=== PATIENT | male | born 1990 | race Caucasian/White ===

== ENCOUNTER 2018-04-04 07:42 | Emergency (ER) | payer BC, OTHER ==
--- NOTE | 2018-04-04 08:14 | ED ---
Chest Pain HPI - General Chief Complaint: Chest Pain Stated Complaint: feels ill Time Seen by Provider: 04/04/18 08:02 Source: patient, RN notes reviewed, old records reviewed Mode of arrival: ambulatory Limitations: no limitations - History of Present Illness Initial Comments: [id number] male presents returns today with chief complaint of intermittent chest pain for the past 4 months. Patient reports last night his heart rate was 120, and he was sitting there resting. Patient reports that he starts having a sharp stabbing pain to that time. He is a smoker. Family history of heart disease. Patient reports these been having these pains while he was at work. He states is not reproducible to motion or palpation. Patient states he's had no fevers or chills. When he does have the pain he occasionally feels somewhat short of breath. He denies any nausea or vomiting or abdominal pain. Denies any fevers or chills. No leg swelling or history of heart disease for himself. He has had a history of multiple cosmetic surgeries on his face. - Related Data Previous Rx's Medication Instructions Recorded Albuterol Inhaler [Ventolin Hfa 2 puff INHALATION Q4HR PRN #1 02/25/15 Inhaler] inhaler Azithromycin [Zithromax Z-pack] 250 mg PO DIRECTED #6 tab 02/25/15 predniSONE 50 mg PO DAILY #5 tab 02/25/15 Allergies Allergy/AdvReac Type Severity Reaction Status Date / Time No Known Allergies Allergy Verified 04/04/18 07:45 Review of Systems ROS Statement: Those systems with pertinent positive or pertinent negative responses have been documented in the HPI. ROS Other: All systems not noted in ROS Statement are negative. EKG Findings - EKG Comments: EKG Findings:: EKG performed at 758 and shows normal sinus rhythm with sinus arrhythmia. Rightward axis. Borderline EKG. Ventricular rate of 71 bpm. WV interval is 134 ms. QRS duration 104. QT QTc is 376/4 ms. No evidence of ST elevation or T-wave inversion. Notes of atrial or ventricular arrhythmias. Past Medical History Past Medical History: No Reported History History of Any Multi-Drug Resistant Organisms: None Reported Additional Past Surgical History / Comment(s): multiple cosmetic surgeries to face, wisdom teeth removed Past Psychological History: No Psychological Hx Reported Smoking Status: Current every day smoker Past Alcohol Use History: Rare Past Drug Use History: Marijuana General Exam - General Exam Comments Initial Comments: 28-year-old male. Alert and oriented. No acute distress. General: Well appearing, well nourished, in no distress. Oriented x 3, normal mood and affect . Ambulating without difficulty. Skin: Good turgor, no rash, unusual bruising or prominent lesions Hair: Normal texture and distribution. HEENT: Head: Normocephalic, atraumatic, no visible or palpable masses, depressions, or scaring. Eyes: Visual acuity intact, conjunctiva clear, sclera non-icteric, EOM intact, PERRL. Ears: EACs clear, TMs translucent & cone of light visualized. hearing intact. Nose: No external lesions, mucosa non-inflamed, septum and turbinates normal Mouth: Mucous membranes moist, no mucosal lesions. Teeth/Gums: No obvious caries or periodontal disease. No gingival inflammation or significant resorption. Pharynx: Mucosa non-inflamed, no tonsillar hypertrophy or exudate Neck: Supple, without lesions, bruits, or adenopathy, thyroid non-enlarged and non-tender Heart: No cardiomegaly or thrills; regular rate and rhythm, no murmur or gallop Lungs: Clear to auscultation and percussion Abdomen: Bowel sounds normal, no tenderness, organomegaly, masses, or hernia Extremities: No amputations or deformities, cyanosis, edema or varicosities, peripheral pulses intact Musculoskeletal: Normal gait and station. No misalignment, asymmetry, crepitation, defects, tenderness, masses, effusions, decreased range of motion, instability, atrophy or abnormal strength or tone in the head, neck, spine, ribs , pelvis or extremities. Neurologic: CN 2-12 normal. Sensation to pain, touch, and proprioception normal. DTRs normal in upper and lower extremities. No pathologic reflexes. Psychiatric: Oriented X3, intact recent and remote memory, judgment and insight , normal mood and affect. Limitations: no limitations Course Vital Signs 04/04/18 07:45 Temperature 97.7 F Pulse Rate 80 Respiratory 18 Rate Blood Pressure 131/92 O2 Sat by Pulse 100 Oximetry Chest Pain MDM - MDM 28-year-old male present intermittent chest pain Past 4 months. Patient's EKG is reviewed and negative for any acute changes. Reports that he has a chest he does check his heart rate since her elevated. Patient reports his heart rate does times is 1 20 bpm. At this time patient's laboratory was reviewed and unremarkable. Chest x-ray was reviewed and shows no acute cardio pulmonary process. Discussed the Patient likely needs follow-up with PCP in he needs to have a Holter monitor. I discussed close follow-up with primary care physician. Patient history plan will comply. Return parameters were discussed. Disposition Clinical Impression: Intermittent chest pain Disposition: HOME SELF-CARE Condition: Good Instructions: Chest Pain (ED) Additional Instructions: Patient has a follow-up with primary care physician. He may need a Holter monitor. Also follow-up with cardiology. Return to emergency department if any alarming signs or symptoms occur. Is patient prescribed a controlled substance at d/c from ED?: No Referrals: None,Stated [Primary Care Provider] - 1-2 days Kirstie Cazares MD [STAFF PHYSICIAN] - 1-2 days Radha Langford MD [STAFF PHYSICIAN] - 1-2 days Time of Disposition: 09:37
[2018-04-04 08:28] LABS: Basophils % (A) 0 %; Eosinophils # (A) 0.1 k/uL (0-0.7); Eosinophils % (A) 2 %; HCT 45.3 % (39.0-53.0); HGB 15.3 gm/dL (13.0-17.5); Lymphocytes % (A) 24 %; MCH 31.3 pg (25.0-35.0); MCHC 33.7 g/dL (31.0-37.0); Mean Platelet Volume 7.1; Monocytes # (A) 0.5 k/uL (0-1.0); Monocytes % (A) 6 %; Neutrophils # (A) 5.7 k/uL (1.3-7.7); Neutrophils % (A) 67 %; Platelet Count 261 k/uL (150-450); RBC 4.87 m/uL (4.30-5.90); RDW 12.8 % (11.5-15.5); WBC 8.4 k/uL (3.8-10.6)
[2018-04-04 08:35] LABS: INR 1.1 (<1.2); Partial Thromboplastin Time 26.4 sec (22.0-30.0); Prothrombin Time 10.9 sec (9.0-12.0)
--- NOTE | 2018-04-04 08:37 | XR ---
EXAMINATION TYPE: XR chest 2V DATE OF EXAM: 04/04/2018 COMPARISON: 02/25/2015 INDICATION: Chest pain TECHNIQUE: Frontal and lateral views of the chest are obtained. FINDINGS: The heart size is normal. The pulmonary vasculature is normal. The lungs are clear. IMPRESSION: 1. No acute pulmonary process.
[2018-04-04 08:38] LABS: ALT 26 U/L (21-72); AST 27 U/L (17-59); Albumin 4.5 g/dL (3.5-5.0); Alkaline Phosphatase 52 U/L (38-126); Anion Gap 9 mmol/L; Blood Urea Nitrogen 14 mg/dL (9-20); Calcium 9.6 mg/dL (8.4-10.2); Carbon Dioxide 23 mmol/L (22-30); Chloride 108 mmol/L (98-107); Glucose 96 mg/dL (74-99); Lipase 52 U/L (23-300); Magnesium 1.9 mg/dL (1.6-2.3); Potassium 3.9 mmol/L (3.5-5.1); Sodium 140 mmol/L (137-145); Total Bilirubin 0.5 mg/dL (0.2-1.3); Total Protein 7.6 g/dL (6.3-8.2)
[2018-04-04 08:50] LABS: Creatine Kinase 287 U/L (55-170)
[2018-04-04 09:03] LABS: Troponin I <0.012 ng/mL (0.000-0.034)
[2018-04-04 09:46] VITALS: BP 123/73; PULSE 64; RESP 16; TEMP 97.9
== END 2018-04-04 09:45 | disposition home or self-care (01) ==
LOC: EC 07:42
DX: R07.9 Chest pain, unspecified (principal); R06.02 Shortness of breath; F17.200 Nicotine dependence, unspecified, uncomplicated; Z82.49 Family history of ischemic heart disease and other diseases of the circulatory system
CPT/HCPCS: 36415; 71046; 80053; 82550; 82553; 83690; 83735; 84484; 85025; 85610; 85730; 93005; 99285

== ENCOUNTER → 2018-04-25 | Outpatient (CLI) | payer OTHER ==
--- NOTE | 2018-04-25 09:51 | CT ---
EXAMINATION TYPE: CT chest w con DATE OF EXAM: 04/25/2018 COMPARISON: Radiograph 04/04/2018 HISTORY: 28-year-old male left-sided chest pain for 6 months left sided chest pain x 6 months TECHNIQUE: Contiguous axial scanning of the chest after the administration of 100 mL of Isovue 300. Coronal/sagittal reconstructions performed. CT DLP: 115.3mGycm. Automatic exposure control utilized for a dose reduction. FINDINGS: Heart normal size without pericardial effusion. Aorta normal caliber with conventional arch vessel branching anatomy. No thoracic lymphadenopathy. There is mild pleural parenchymal scarring in the periphery of the right upper lobe with some strandy opacity also extending into the right upper lobe. Mild diffuse bronchial wall thickening. No consoli dation or pleural effusion. Visualized upper abdomen shows no gross abnormality. Bones: Osseous destructive process. IMPRESSION: 1. Strandy areas of pleural-parenchymal scarring within the right lung. 2. Very minimal diffuse bronchial wall thickening could represent bronchitis or asthma. Query smoking history. 3. Otherwise, no acute pulmonary process.
== END | disposition home or self-care (01) ==
LOC: RADCTMAIN 08:23
PROVIDERS: ATTEND Family Medicine
DX: J98.4 Other disorders of lung (principal); R07.9 Chest pain, unspecified
CPT/HCPCS: 71260; Q9967

== ENCOUNTER → 2018-05-10 | Outpatient (CLI) | payer OTHER ==
--- NOTE | 2018-05-10 11:13 | P.STRESS ---
- Stress Test Note Stress Test Results/Findings: Exam Performed: stress echo exercise Exam Date: 05/10/18 Reason for Exam: CP Height: 5 ft 5 in Weight: 47.174 kg Protocol: MAXX Stage: 5 Duration of Exercise: 13 Resting Heart Rate: 66 Resting Blood Pressure: 108/52 Maximum Achieved Heart Rate: 178 Maximum Achieved Blood Pressure: 151/56 85% PMHR: 162 100% PMHR: 191 METS: 13.5 Technologist Comment: Stress Test Results/Findings: This is a 28-year-old male being evaluated for symptoms of chest pain and palpitations. Patient has history of smoking and family history of ischemic heart disease. Stress data: Baseline EKG showed sinus rhythm with normal NV interval, QRS duration. Blood pressure is 108/52 with pulse rate of 66. Patient walked on the Maxx protocol for 13 minutes achieving a maximal heart rate of 178 with blood pressure 150/56. EKGs taken during and after exercise did not reveal any changes of ischemia. New Echo data: Baseline echo images showed normal wall motion and thickening. Exercise echo images showed augmentation of wall motion and thickening in all segments. Final impression: #1. Negative stress test #2. Negative stress echo
--- NOTE | 2018-05-10 12:16 | ECHOS ---
Stress Test Results/Findings: Exam Performed: stress echo exercise Exam Date: 05/10/18 Reason for Exam: CP Height: 5 ft 5 in Weight: 47.174 kg Protocol: MAXX Stage: 5 Duration of Exercise: 13 Resting Heart Rate: 66 Resting Blood Pressure: 108/52 Maximum Achieved Heart Rate: 178 Maximum Achieved Blood Pressure: 151/56 85% PMHR: 162 100% PMHR: 191 METS: 13.5 Technologist Comment: Stress Test Results/Findings: This is a 28-year-old male being evaluated for symptoms of chest pain and palpitations. Patient has history of smoking and family history of ischemic heart disease. Stress data: Baseline EKG showed sinus rhythm with normal CT interval, QRS duration. Blood pressure is 108/52 with pulse rate of 66. Patient walked on the Maxx protocol for 13 minutes achieving a maximal heart rate of 178 with blood pressure 150/56. EKGs taken during and after exercise did not reveal any changes of ischemia. New Echo data: Baseline echo images showed normal wall motion and thickening. Exercise echo images showed augmentation of wall motion and thickening in all segments. Final impression: #1. Negative stress test #2. Negative stress echo MTDD
== END | disposition home or self-care (01) ==
LOC: RADNMMAIN 10:08
PROVIDERS: ATTEND Family Medicine
DX: R07.9 Chest pain, unspecified (principal)
CPT/HCPCS: 93351

== ENCOUNTER 2018-07-27 09:23 | Emergency (ER) | payer OTHER ==
[2018-07-27] MEDS ORDERED: ONDANSETRON 4 MG/2 ML VIAL IVP STA (09:53)
[2018-07-27] MEDS ORDERED: SODIUM CHLORIDE 0.9% 1,000 ML IV STA (09:53)
[2018-07-27 10:10] LABS: Appearance,Urine Clear (Clear); Bilirubin,Urine Negative (Negative); Blood,Urine Negative (Negative); Color,Urine Yellow; Glucose,Urine (UA) Negative (Negative); Ketones,Urine Negative (Negative); Leukocyte Esterase,Urine Negative (Negative); Nitrite,Urine Negative (Negative); Protein,Urine Trace (Negative); Specific Gravity,Urine 1.017 (1.001-1.035); Urobilinogen,Urine <2.0 mg/dL (<2.0)
[2018-07-27 10:15] LABS: Basophils % (A) 0 %; Eosinophils # (A) 0.1 k/uL (0-0.7); Eosinophils % (A) 2 %; HCT 49.9 % (39.0-53.0); HGB 16.1 gm/dL (13.0-17.5); Lymphocytes # (A) 1.8 k/uL (1.0-4.8); Lymphocytes % (A) 25 %; MCH 30.7 pg (25.0-35.0); MCHC 32.3 g/dL (31.0-37.0); MCV 95.1 fL (80.0-100.0); Mean Platelet Volume 7.1; Monocytes # (A) 0.4 k/uL (0-1.0); Monocytes % (A) 6 %; Neutrophils # (A) 4.6 k/uL (1.3-7.7); Neutrophils % (A) 65 %; Platelet Count 255 k/uL (150-450); RBC 5.24 m/uL (4.30-5.90); RDW 12.9 % (11.5-15.5); WBC 7.1 k/uL (3.8-10.6)
--- NOTE | 2018-07-27 10:15 | ED ---
General Adult HPI - General Chief complaint: Abdominal Pain Stated complaint: antibiotics not working; pelvic pain Time Seen by Provider: 07/27/18 09:44 Source: patient, RN notes reviewed Mode of arrival: ambulatory Limitations: no limitations - History of Present Illness Initial comments: Patient 28-year-old male presents to the emergency room today with chief complaint of abdominal pain that started 1 week ago. He does admit that symptoms started with difficulty urinating. He is followed the family doctor and was started on Flomax also given a antibiotic. Patient states that he has had some relief of the symptoms unable to void. He states still experiencing pain in the lower abdomen with pain both on the right and left flanks at times. He describes it as sharp pain that comes and goes. Patient states that is also had decreased bowel movements. Patient denies any other complaints or symptoms. Patient denies any recent fever, chills, shortness of breath, chest pain, back pain, abdominal pain, nausea or vomiting, numbness or tingling, dysuria or hematuria, headaches or visual changes, or any other complaints. - Related Data Home Medications Medication Instructions Recorded Confirmed Amoxicillin 500 mg PO TID 07/27/18 07/27/18 Linaclotide [Linzess] 144 mcg PO ONCE 07/27/18 07/27/18 Melatonin 10 mg PO HS 07/27/18 07/27/18 Tamsulosin [Flomax] 0.4 mg PO DAILY 07/27/18 07/27/18 Previous Rx's Medication Instructions Recorded Doxycycline [Vibramycin] 100 mg PO BID #28 cap 07/27/18 Allergies Allergy/AdvReac Type Severity Reaction Status Date / Time No Known Allergies Allergy Verified 07/27/18 10:05 Review of Systems ROS Statement: Those systems with pertinent positive or pertinent negative responses have been documented in the HPI. ROS Other: All systems not noted in ROS Statement are negative. Past Medical History Past Medical History: No Reported History History of Any Multi-Drug Resistant Organisms: None Reported Additional Past Surgical History / Comment(s): multiple cosmetic surgeries to face, wisdom teeth removed Past Psychological History: No Psychological Hx Reported Smoking Status: Current every day smoker Past Alcohol Use History: Rare Past Drug Use History: Marijuana General Exam - General Exam Comments Initial Comments: General: The patient is awake and alert, in no distress, and does not appear acutely ill. Eye: There is normal conjunctiva bilaterally. No signs of icterus. Ears, nose, mouth and throat: There are moist mucous membranes and no oral lesions. Neck: The neck is supple, there is no tenderness or JVD. Cardiovascular: There is a regular rate and rhythm. No murmur, rub or gallop is appreciated. Respiratory: Lungs are clear to auscultation, respirations are non-labored, breath sounds are equal. No wheezes, stridor, rales, or rhonchi. Gastrointestinal: M soft on palpation. Patient does have mild tenderness lower quadrants. No rebound, guarding or CVA tenderness. Musculoskeletal: Normal ROM, no tenderness. Strength 5/5. Sensation intact. Pulses equal bilaterally 2+. Neurological: A&O x 3. CN II-XII intact, There are no obvious motor or sensory deficits. Coordination appears grossly intact. Speech is normal. Skin: Skin is warm and dry and no rashes or lesions are noted. Psychiatric: Cooperative, appropriate mood & affect, normal judgment. Limitations: no limitations Course Vital Signs 07/27/18 07/27/18 09:40 11:49 Temperature 98 F 98.9 F Pulse Rate 100 52 L Respiratory 20 18 Rate Blood Pressure 116/66 116/78 O2 Sat by Pulse 99 99 Oximetry Medical Decision Making - Medical Decision Making Patient's CT and pelvis reviewed and does show mildly enlarged and heterogeneous prostate gland. There is a scant amount of free fluid within the pelvis is read by radiologist. Patient's labs been reviewed. Patient will be treated with azithromycin, Rocephin here in the emergency room. He states there is no chance for any STDs. Patient's will be switched from antibiotics of amoxicillin 2 doxycycline. He is advised to follow-up the family physician and he does state he has an appointment coming up with urology. - Lab Data Result diagrams: 07/27/18 10:00 07/27/18 10:00 Lab Results 07/27/18 07/27/18 07/27/18 Range/Units 09:53 10:00 10:00 WBC 7.1 (3.8-10.6) k/uL RBC 5.24 (4.30-5.90) m/uL Hgb 16.1 (13.0-17.5) gm/dL Hct 49.9 (39.0-53.0) % MCV 95.1 (80.0-100.0) fL MCH 30.7 (25.0-35.0) pg MCHC 32.3 (31.0-37.0) g/dL RDW 12.9 (11.5-15.5) % Plt Count 255 (150-450) k/uL Neutrophils % 65 % Lymphocytes % 25 % Monocytes % 6 % Eosinophils % 2 % Basophils % 0 % Neutrophils # 4.6 (1.3-7.7) k/uL Lymphocytes # 1.8 (1.0-4.8) k/uL Monocytes # 0.4 (0-1.0) k/uL Eosinophils # 0.1 (0-0.7) k/uL Basophils # 0.0 (0-0.2) k/uL Sodium 141 (137-145) mmol/L Potassium 4.8 (3.5-5.1) mmol/L Chloride 110 H (98-107) mmol/L Carbon Dioxide 24 (22-30) mmol/L Anion Gap 7 mmol/L BUN 15 (9-20) mg/dL Creatinine 0.69 (0.66-1.25) mg/dL Est GFR (CKD-EPI)AfAm >90 (>60 ml/min/1.73 sqM) Est GFR (CKD-EPI)NonAf >90 (>60 ml/min/1.73 sqM) Glucose 95 (74-99) mg/dL Calcium 9.5 (8.4-10.2) mg/dL Total Bilirubin 0.7 (0.2-1.3) mg/dL AST 24 (17-59) U/L ALT 22 (21-72) U/L Alkaline Phosphatase 46 (38-126) U/L Total Protein 7.5 (6.3-8.2) g/dL Albumin 4.5 (3.5-5.0) g/dL Amylase 64 (30-110) U/L Lipase 60 (23-300) U/L Urine Color Yellow Urine Appearance Clear (Clear) Urine pH 6.0 (5.0-8.0) Ur Specific [place] 1.017 (1.001-1.035) Urine Protein Trace H (Negative) Urine Glucose (UA) Negative (Negative) Urine Ketones Negative (Negative) Urine Blood Negative (Negative) Urine Nitrite Negative (Negative) Urine Bilirubin Negative (Negative) Urine Urobilinogen <2.0 (<2.0) mg/dL Ur Leukocyte Esterase Negative (Negative) Disposition Clinical Impression: Prostatitis Disposition: HOME SELF-CARE Condition: Good Instructions: Prostatitis (ED) Additional Instructions: Please use medication as discussed. Please follow-up with family doctor in the next 2 days. Please return to emergency room if the symptoms increase or worsen or for any other concerns. Prescriptions: Doxycycline [Vibramycin] 100 mg PO BID #28 cap Is patient prescribed a controlled substance at d/c from ED?: No Referrals: Anny Pace MD [Primary Care Provider] - 1-2 days Time of Disposition: 12:21
--- NOTE | 2018-07-27 10:22 | XR ---
EXAMINATION TYPE: XR KUB , 2 VIEWS DATE OF EXAM ORDERED: 07/27/2018 HISTORY: abdominal pain. COMPARISON: None. FINDINGS: The lung bases are clear. Within the abdomen, the abdominal gas pattern is normal. There is no evidence of obstruction or free air. There is a phlebolith in the left hemipelvis. IMPRESSION: NO ACUTE INTRA-ABDOMINAL ABNORMALITY.
[2018-07-27 10:34] LABS: ALT 22 U/L (21-72); AST 24 U/L (17-59); Albumin 4.5 g/dL (3.5-5.0); Alkaline Phosphatase 46 U/L (38-126); Amylase 64 U/L (30-110); Anion Gap 7 mmol/L; Blood Urea Nitrogen 15 mg/dL (9-20); Calcium 9.5 mg/dL (8.4-10.2); Carbon Dioxide 24 mmol/L (22-30); Chloride 110 mmol/L (98-107); Glucose 95 mg/dL (74-99); Lipase 60 U/L (23-300); Potassium 4.8 mmol/L (3.5-5.1); Sodium 141 mmol/L (137-145); Total Bilirubin 0.7 mg/dL (0.2-1.3); Total Protein 7.5 g/dL (6.3-8.2)
--- NOTE | 2018-07-27 11:39 | CT ---
EXAMINATION TYPE: CT abdomen pelvis w con DATE OF EXAM: 07/27/2018 REFERENCE: NONE HISTORY: Pain HISTORY: Pelvic pain with difficulty urinating and bowel changes REFERENCE: NONE CT DLP: 378.5 mGy Automated exposure control for dose reduction was used. TECHNIQUE: Helical acquisition through the abdomen and pelvis was obtained following the oral ingesti on of without Oral Contrast and following intravenous administration of 100 mL of Isovue 300. The eve a was reformatted in axial, coronal and sagittal projections. FINDINGS: Visualized portions of the lungs are clear. There is no pleural or pericardial fluid. The heart is not enlarged. Within the abdomen, the liver, spleen and gallbladder are normal. Both adrenal glands are normal. Both kidneys demonstrate function and are morphologically normal. The pancreas is unremarkable. There is no significant retroperitoneal, iliac or inguinal adenopathy. The bladder is unremarkable. The prostate gland appears enlarged and heterogenous lesion enhances. Both large and small bowel appear normal. The appendix is not visualized with certainty. There is no free air identified. There is a small amount of free fluid in the pelvis. No osseous lesion is seen. IMPRESSION: 1. MILDLY ENLARGED AND HETEROGENOUS PROSTATE GLAND. PLEASE CORRELATE FOR PROSTATITIS. 2. SCANT AMOUNT OF FREE FLUID WITHIN THE PELVIS.
[2018-07-27 11:51] VITALS: BP 116/78; PULSE 52; RESP 18; TEMP 98.9
[2018-07-27] MEDS ORDERED: cefTRIAXone 250 MG VIAL IV STA (12:10)
[2018-07-27] MEDS ORDERED: AZITHROMYCIN 500 MG TAB PO STA (12:11)
[2018-07-27] MEDS ORDERED: cefTRIAXone 250 MG VIAL IM STA (12:53)
== END 2018-07-27 12:58 | disposition home or self-care (01) ==
LOC: EC 09:23
DX: N41.9 Inflammatory disease of prostate, unspecified (principal); F17.200 Nicotine dependence, unspecified, uncomplicated; Z79.899 Other long term (current) drug therapy; Z53.8 Procedure and treatment not carried out for other reasons
CPT/HCPCS: 36415; 80053; 82150; 83690; 85025; 81003; 87086; 74018; 74177; 99284; 96374; 96361 ×3; 96372; J2405; J0696; Q9967

== ENCOUNTER 2018-09-06 19:56 | Emergency (ER) | payer OTHER ==
[2018-09-06] MEDS ORDERED: SODIUM CHLORIDE 0.9% 1,000 ML IV STA (20:20)
[2018-09-06] MEDS ORDERED: ONDANSETRON 4 MG/2 ML VIAL IVP STA (20:20)
[2018-09-06 20:50] LABS: Basophils % (A) 0 %; Eosinophils # (A) 0.3 k/uL (0-0.7); Eosinophils % (A) 2 %; HCT 49.1 % (39.0-53.0); Lymphocytes # (A) 1.9 k/uL (1.0-4.8); Lymphocytes % (A) 12 %; MCH 31.2 pg (25.0-35.0); MCHC 32.5 g/dL (31.0-37.0); MCV 95.8 fL (80.0-100.0); Mean Platelet Volume 7.7; Monocytes # (A) 0.6 k/uL (0-1.0); Monocytes % (A) 4 %; Neutrophils # (A) 13.2 k/uL (1.3-7.7); Neutrophils % (A) 82 %; Platelet Count 249 k/uL (150-450); RBC 5.13 m/uL (4.30-5.90); RDW 12.7 % (11.5-15.5); WBC 16.2 k/uL (3.8-10.6)
[2018-09-06 21:00] LABS: ALT 23 U/L (21-72); AST 20 U/L (17-59); Albumin 4.5 g/dL (3.5-5.0); Alkaline Phosphatase 52 U/L (38-126); Amylase 58 U/L (30-110); Anion Gap 6 mmol/L; Blood Urea Nitrogen 17 mg/dL (9-20); Calcium 9.4 mg/dL (8.4-10.2); Carbon Dioxide 26 mmol/L (22-30); Chloride 106 mmol/L (98-107); Glucose 104 mg/dL (74-99); Lipase 99 U/L (23-300); Potassium 4.2 mmol/L (3.5-5.1); Sodium 138 mmol/L (137-145); Total Bilirubin 0.6 mg/dL (0.2-1.3); Total Protein 7.3 g/dL (6.3-8.2)
[2018-09-06 21:19] LABS: Appearance,Urine Clear (Clear); Bilirubin,Urine Negative (Negative); Blood,Urine Negative (Negative); Color,Urine Yellow; Glucose,Urine (UA) Negative (Negative); Ketones,Urine Negative (Negative); Leukocyte Esterase,Urine Negative (Negative); Nitrite,Urine Negative (Negative); Protein,Urine Negative (Negative); Specific Gravity,Urine 1.017 (1.001-1.035)
--- NOTE | 2018-09-06 21:19 | XR ---
EXAMINATION TYPE: XR abdomen acute w cxr DATE OF EXAM: 09/06/2018 COMPARISON: 04/04/2018 HISTORY: Chest pain TECHNIQUE: Chest x-ray with supine and upright abdomen FINDINGS: Heart and mediastinum are normal. Lungs are clear. Diaphragm is normal. Bony thorax appears normal. Bowel gas pattern is normal. There is no sign of intestinal obstruction or pneumoperitoneum. Fecal pa ttern is normal. There is no evidence of a mass. There are no pathologic calcifications over the kidn eys. IMPRESSION: Nonacute abdomen. Normal chest. Chest unchanged compared to old exam.
--- NOTE | 2018-09-06 22:05 | US ---
EXAMINATION TYPE: US gallbladder DATE OF EXAM: 09/06/2018 COMPARISON: NONE CLINICAL HISTORY: Pain. EXAM MEASUREMENTS: Liver Length: 13.5 cm Gallbladder Wall: 0.3 cm CBD: 0.3 cm Right Kidney: 10.5 x 4.0 x 4.8 cm Pancreas: wnl Liver: wnl Gallbladder: appears wnl at seen, however pt not NPO, gallbladder contracted Evidence for sonographic Haynes's sign: no CBD: wnl Right Kidney: wnl IMPRESSION: Negative exam. No gallstones or dilated ducts.
--- NOTE | 2018-09-06 22:20 | ED ---
Abdominal Pain HPI - General Chief Complaint: Abdominal Pain Stated Complaint: Abd pain Time Seen by Provider: 09/06/18 20:19 Source: patient Mode of arrival: ambulatory Limitations: no limitations - History of Present Illness Initial Comments: 28-year-old male who denies past medical history presenting today for chief complaint of abdominal pain 2 months. Patient states he has been struggling with abdominal pain for the past 2 months. He states it comes and goes. He is unable to localize it. Stating it changes in location. Patient denies any significant abdominal pain today. Patient states the past week and a half he has had on and off diarrhea. Patient denies any consistent diarrhea melena hematochezia. Patient states he had one isolated episode of vomiting, denies hematemesis. Patient denies chest pain, dysphagia, dyspepsia exertion, lower extremity edema, rash, sore throat, cough congestion, fever, chills. Patient does admit to occasional night sweats. Patient states that he often has to have a bowel movement immediately following eating, he states he is concerned this is his gallbladder patient states he does occasionally have right upper quadrant pain denies current. Remainder of ROS negative, oatient denies any recent fever, chills, back pain, numbness or tingling, dysuria, urgency or hematuria, constipation, headaches or visual changes, or any other complaints. Upon arrival patient is well-appearing no signs of acute distress. - Related Data Home Medications Medication Instructions Recorded Confirmed Melatonin 10 mg PO HS 07/27/18 09/06/18 Allergies Allergy/AdvReac Type Severity Reaction Status Date / Time No Known Allergies Allergy Verified 09/06/18 20:29 Review of Systems ROS Statement: Those systems with pertinent positive or pertinent negative responses have been documented in the HPI. ROS Other: All systems not noted in ROS Statement are negative. Past Medical History Past Medical History: No Reported History History of Any Multi-Drug Resistant Organisms: None Reported Additional Past Surgical History / Comment(s): multiple cosmetic surgeries to face, wisdom teeth removed Past Psychological History: No Psychological Hx Reported Smoking Status: Current every day smoker Past Alcohol Use History: Rare Past Drug Use History: Marijuana General Exam - General Exam Comments Initial Comments: General: The patient is awake and alert, in no distress, and does not appear acutely ill. Eye: Pupils are equal, round and reactive to light, extra-ocular movements are intact. No nystagmus. There is normal conjunctiva bilaterally. No signs of icterus. Ears, nose, mouth and throat: There are moist mucous membranes and no oral lesions. Neck: The neck is supple, there is no tenderness or JVD. Cardiovascular: There is a regular rate and rhythm. No murmur, rub or gallop is appreciated. Respiratory: Lungs are clear to auscultation, respirations are non-labored, breath sounds are equal. No wheezes, stridor, rales, or rhonchi. Gastrointestinal: No noted diaphoresis, jaundice, pallor, protecting postures or squirming. Symmetrical pigmentation of abdomen without signs of inflammation, scars, or striae. Umbilicus mildline, inverted without swelling. No dilated veins. Abdomen contour schaphoid, no noted abdominal distention. No visible masses. No peristalsis, aortic pulsations, or ventral hernia. Bowel sounds audible in all 4 quadrants, unremarkable. No tenderness to light or deep palpation. Liver edge , not palpable. Spleen edge, right and left kidney not palpable. Superior bladder margin non-tender. Special Testing: Negative, [place], [place], McBurney, Al, cutaneous hyperesthesia. Iliopsoas and obturator tests negative bilaterally. Negative Heel Jar test. No CVA tenderness. Digital rectal exam deferred. Negative kinsey turners or cullens sign Musculoskeletal: Normal ROM, no tenderness. Strength 5/5. Sensation intact. Radial and DP pulses equal bilaterally 2+. Neurological: A&O x 3. CN II-XII intact, There are no obvious motor or sensory deficits. Coordination appears grossly intact. Speech is normal. Skin: Skin is warm and dry and no rashes or lesions are noted. Psychiatric: Cooperative, appropriate mood & affect, normal judgment. Limitations: no limitations Course Vital Signs 09/06/18 09/06/18 20:16 22:45 Temperature 98.5 F 98.6 F Pulse Rate 99 60 Respiratory 20 14 Rate Blood Pressure 128/90 123/77 O2 Sat by Pulse 97 98 Oximetry Medical Decision Making - Medical Decision Making Elevation of white blood cell count. Remainder of laboratory values within normal limits. Patient appears well, no signs of pain on abdominal exam. Benign exam. Patient history concerning for possible gallbladder disease with frequent loose stools following greasy meals. Patient had normal ultrasound gallbladder. No signs concerning for cholelithiasis. Acute abdominal series (-) . At this time do feel patient is stable for discharge with outpatient gastroenterology follow-up for chronic abdominal pain. Patient is agreeable plan discharge. Denies questions at this time. Patient discharged stable condition. Well. Patient aware of return parameters, denies questions at this time. Case discussed with attending provider Dr. Barraza prior to patient's discharge - Lab Data Result diagrams: 09/06/18 20:35 09/06/18 20:35 Lab Results 09/06/18 09/06/18 09/06/18 Range/Units 20:35 20:35 21:10 WBC 16.2 H (3.8-10.6) k/uL RBC 5.13 (4.30-5.90) m/uL Hgb 16.0 (13.0-17.5) gm/dL Hct 49.1 (39.0-53.0) % MCV 95.8 (80.0-100.0) fL MCH 31.2 (25.0-35.0) pg MCHC 32.5 (31.0-37.0) g/dL RDW 12.7 (11.5-15.5) % Plt Count 249 (150-450) k/uL Neutrophils % 82 % Lymphocytes % 12 % Monocytes % 4 % Eosinophils % 2 % Basophils % 0 % Neutrophils # 13.2 H (1.3-7.7) k/uL Lymphocytes # 1.9 (1.0-4.8) k/uL Monocytes # 0.6 (0-1.0) k/uL Eosinophils # 0.3 (0-0.7) k/uL Basophils # 0.0 (0-0.2) k/uL Sodium 138 (137-145) mmol/L Potassium 4.2 (3.5-5.1) mmol/L Chloride 106 (98-107) mmol/L Carbon Dioxide 26 (22-30) mmol/L Anion Gap 6 mmol/L BUN 17 (9-20) mg/dL Creatinine 0.73 (0.66-1.25) mg/dL Est GFR (CKD-EPI)AfAm >90 (>60 ml/min/1.73 sqM) Est GFR (CKD-EPI)NonAf >90 (>60 ml/min/1.73 sqM) Glucose 104 H (74-99) mg/dL Calcium 9.4 (8.4-10.2) mg/dL Total Bilirubin 0.6 (0.2-1.3) mg/dL AST 20 (17-59) U/L ALT 23 (21-72) U/L Alkaline Phosphatase 52 (38-126) U/L Total Protein 7.3 (6.3-8.2) g/dL Albumin 4.5 (3.5-5.0) g/dL Amylase 58 (30-110) U/L Lipase 99 (23-300) U/L Urine Color Yellow Urine Appearance Clear (Clear) Urine pH 7.0 (5.0-8.0) Ur Specific [place] 1.017 (1.001-1.035) Urine Protein Negative (Negative) Urine Glucose (UA) Negative (Negative) Urine Ketones Negative (Negative) Urine Blood Negative (Negative) Urine Nitrite Negative (Negative) Urine Bilirubin Negative (Negative) Urine Urobilinogen 3.0 (<2.0) mg/dL Ur Leukocyte Esterase Negative (Negative) Disposition Clinical Impression: Nonspecific abdominal pain, Diarrhea Disposition: HOME SELF-CARE Condition: Good Instructions (If sedation given, give patient instructions): Abdominal Pain (ED ) Additional Instructions: Please use medication as discussed. Please follow-up with family doctor in the next 2 days, please follow-up in next week with gastroenterology as discussed. Please return to emergency room if the symptoms increase or worsen or for any other concerns. Is patient prescribed a controlled substance at d/c from ED?: No Referrals: Anny Pace MD [Primary Care Provider] - 1-2 days Edilma Crespo MD [STAFF PHYSICIAN] - 1-2 days Time of Disposition: 22:19
[2018-09-06 23:20] VITALS: BP 123/77; PULSE 60; RESP 14; TEMP 98.6
== END 2018-09-06 22:45 | disposition home or self-care (01) ==
LOC: EC 19:56
DX: R10.11 Right upper quadrant pain (principal); G89.29 Other chronic pain; R19.7 Diarrhea, unspecified; R11.10 Vomiting, unspecified; R61 Generalized hyperhidrosis; F17.200 Nicotine dependence, unspecified, uncomplicated
CPT/HCPCS: 36415; 74022; 76705; 80053; 81003; 82150; 83690; 85025; 96360; 99284

== ENCOUNTER → 2019-07-03 | Outpatient (CLI) | payer BC ==
--- NOTE | 2019-07-03 09:08 | US ---
EXAMINATION TYPE: US kidneys/renal and bladder DATE OF EXAM: 07/03/2019 COMPARISON: CT 07/27/18 CLINICAL HISTORY: R30.0 DYSURIA,R10.2 PELVIC PAIN. EXAM MEASUREMENTS: Right Kidney: 10.7 x 4.9 x 3.7 cm Left Kidney: 10.1 x 4.5 x 4.4 cm Post Void Residual Volume: 3.3 mL Right Kidney: No hydronephrosis or masses seen Left Kidney: No hydronephrosis or masses seen Bladder: wnl Bilateral Jets seen: Yes Normal Post Void Residual: Yes There is no evidence for hydronephrosis at this point in time. No nephrolithiasis is seen. No kobi s are identified. The urinary bladder is anechoic. Bilateral ureteral jets are seen. IMPRESSION: No distinct abnormality seen.
== END | disposition home or self-care (01) ==
LOC: RADUSWWP 07:59
PROVIDERS: ATTEND Internal Medicine
DX: R10.2 Pelvic and perineal pain (principal); R30.0 Dysuria
CPT/HCPCS: 76770

== ENCOUNTER 2020-01-28 02:20 | Emergency (ER) | payer BC ==
[2020-01-28 02:29] VITALS: RESP 18; TEMP 98.3
[2020-01-28] MEDS ORDERED: ONDANSETRON 4 MG/2 ML VIAL IVP STA (02:33)
[2020-01-28] MEDS ORDERED: PANTOPRAZOLE 40 MG/10 ML VIAL IVP STA (02:33)
[2020-01-28] MEDS ORDERED: SODIUM CHLORIDE 0.9% 500 ML 500 ML IV STA (02:33)
[2020-01-28] MEDS ORDERED: SODIUM CHLORIDE 0.9% 1,000 ML IV STA (02:33)
--- NOTE | 2020-01-28 02:34 | ED ---
Abdominal Pain HPI - General Chief Complaint: Abdominal Pain Stated Complaint: NVD, SOB Time Seen by Provider: 01/28/20 02:25 Source: patient, RN notes reviewed, old records reviewed Mode of arrival: ambulatory Limitations: no limitations - History of Present Illness Initial Comments: This is a 29-year-old male the ER. Patient presents to the ER for evaluation. Patient presents today for evaluation regards to when he believes maybe to coronavirus. Patient was at work today and was not feeling well had some nausea vomiting felt feverish occasionally short of breath symptoms of been going on for quite some time he has not been tested but is concerned that he has is illness. At this time patient has no complaints except for anxiety that he may lose his job MD Complaint: abdominal pain -: week(s) Location: diffuse Radiation: none Migration to: no migration Consistency: now resolved Improves With: vomiting Worsens With: nothing Context: sick contacts Associated Symptoms: nausea, vomiting - Related Data Home Medications Medication Instructions Recorded Confirmed Melatonin 10 mg PO HS 07/27/18 09/06/18 Allergies Allergy/AdvReac Type Severity Reaction Status Date / Time No Known Allergies Allergy Verified 09/06/18 20:29 Review of Systems ROS Statement: Those systems with pertinent positive or pertinent negative responses have been documented in the HPI. ROS Other: All systems not noted in ROS Statement are negative. Past Medical History Past Medical History: No Reported History History of Any Multi-Drug Resistant Organisms: None Reported Additional Past Surgical History / Comment(s): multiple cosmetic surgeries to face, wisdom teeth removed Past Psychological History: Depression Smoking Status: Current every day smoker Past Alcohol Use History: Rare Past Drug Use History: Marijuana General Exam Limitations: no limitations General appearance: alert, in no apparent distress, anxious Head exam: Present: atraumatic, normocephalic, normal inspection Eye exam: Present: normal appearance, PERRL, EOMI. Absent: scleral icterus, conjunctival injection, periorbital swelling ENT exam: Present: normal exam, mucous membranes moist Neck exam: Present: normal inspection. Absent: tenderness, meningismus, lymphadenopathy Respiratory exam: Present: normal lung sounds bilaterally. Absent: respiratory distress, wheezes, rales, rhonchi, stridor Cardiovascular Exam: Present: regular rate, normal rhythm, normal heart sounds. Absent: systolic murmur, diastolic murmur, rubs, gallop, clicks GI/Abdominal exam: Present: soft, normal bowel sounds. Absent: distended, tenderness, guarding, rebound, rigid Extremities exam: Present: normal inspection, full ROM, normal capillary refill. Absent: tenderness, pedal edema, joint swelling, calf tenderness Back exam: Present: normal inspection Neurological exam: Present: alert, oriented X3, CN II-XII intact Psychiatric exam: Present: normal affect, normal mood Skin exam: Present: warm, dry, intact, normal color. Absent: rash Course Vital Signs 01/28/20 01/28/20 02:24 04:30 Temperature 98.3 F Pulse Rate 109 H 77 Respiratory 18 18 Rate Blood Pressure 119/84 118/84 O2 Sat by Pulse 100 97 Oximetry - Reevaluation(s) Reevaluation #1: Medical records reviewed patient very angry and argumentative throughout ER stay in the fact that he doesn't want to lose his job and even though he had to be sent to ER his and platelets. He gets tested as he has had multiple no surgeries Patient is a symptomatically no shortness of breath currently Medical Decision Making - Medical Decision Making 29-year-old male presented today from work and she had some vomiting shortness of breath which she felt feverish concerned that he has coronavirus, patient has normal lab values vital signs here in the ER will test for coronavirus and follow-up on an outpatient basis with results - Lab Data Result diagrams: 01/28/20 02:47 01/28/20 02:47 Lab Results 01/28/20 01/28/20 01/28/20 Range/Units 02:47 02:47 02:47 WBC 9.5 (3.8-10.6) k/uL RBC 5.06 (4.30-5.90) m/uL Hgb 15.5 (13.0-17.5) gm/dL Hct 48.6 (39.0-53.0) % MCV 96.2 (80.0-100.0) fL MCH 30.6 (25.0-35.0) pg MCHC 31.8 (31.0-37.0) g/dL RDW 12.7 (11.5-15.5) % Plt Count 254 (150-450) k/uL Neutrophils % 86 % Lymphocytes % 8 % Monocytes % 4 % Eosinophils % 2 % Basophils % 0 % Neutrophils # 8.1 H (1.3-7.7) k/uL Lymphocytes # 0.8 L (1.0-4.8) k/uL Monocytes # 0.4 (0-1.0) k/uL Eosinophils # 0.1 (0-0.7) k/uL Basophils # 0.0 (0-0.2) k/uL PT 9.9 (9.0-12.0) sec INR 0.9 (<1.2) APTT 25.1 (22.0-30.0) sec D-Dimer 0.76 H (<0.60) mg/L FEU Sodium 136 L (137-145) mmol/L Potassium 4.4 (3.5-5.1) mmol/L Chloride 106 (98-107) mmol/L Carbon Dioxide 22 (22-30) mmol/L Anion Gap 8 mmol/L BUN 14 (9-20) mg/dL Creatinine 0.59 L (0.66-1.25) mg/dL Est GFR (CKD-EPI)AfAm >90 (>60 ml/min/1.73 sqM) Est GFR (CKD-EPI)NonAf >90 (>60 ml/min/1.73 sqM) Glucose 116 H (74-99) mg/dL Plasma Lactic Acid Steven (0.7-2.0) mmol/L Calcium 9.2 (8.4-10.2) mg/dL Magnesium 1.9 (1.6-2.3) mg/dL Ferritin 62.6 (22.0-322.0) ng/mL Total Bilirubin 0.6 (0.2-1.3) mg/dL AST 28 (17-59) U/L ALT 17 (4-49) U/L Alkaline Phosphatase 56 (38-126) U/L Lactate Dehydrogenase 516 (313-618) U/L C-Reactive Protein 7.6 (<10.0) mg/L Total Protein 7.3 (6.3-8.2) g/dL Albumin 4.3 (3.5-5.0) g/dL Procalcitonin (0.02-0.09) ng/mL Coronavirus (PCR) (Not Detected) 01/28/20 01/28/20 01/28/20 Range/Units 02:47 02:47 03:43 WBC (3.8-10.6) k/uL RBC (4.30-5.90) m/uL Hgb (13.0-17.5) gm/dL Hct (39.0-53.0) % MCV (80.0-100.0) fL MCH (25.0-35.0) pg MCHC (31.0-37.0) g/dL RDW (11.5-15.5) % Plt Count (150-450) k/uL Neutrophils % % Lymphocytes % % Monocytes % % Eosinophils % % Basophils % % Neutrophils # (1.3-7.7) k/uL Lymphocytes # (1.0-4.8) k/uL Monocytes # (0-1.0) k/uL Eosinophils # (0-0.7) k/uL Basophils # (0-0.2) k/uL PT (9.0-12.0) sec INR (<1.2) APTT (22.0-30.0) sec D-Dimer (<0.60) mg/L FEU Sodium (137-145) mmol/L Potassium (3.5-5.1) mmol/L Chloride (98-107) mmol/L Carbon Dioxide (22-30) mmol/L Anion Gap mmol/L BUN (9-20) mg/dL Creatinine (0.66-1.25) mg/dL Est GFR (CKD-EPI)AfAm (>60 ml/min/1.73 sqM) Est GFR (CKD-EPI)NonAf (>60 ml/min/1.73 sqM) Glucose (74-99) mg/dL Plasma Lactic Acid Steven 1.4 (0.7-2.0) mmol/L Calcium (8.4-10.2) mg/dL Magnesium (1.6-2.3) mg/dL Ferritin (22.0-322.0) ng/mL Total Bilirubin (0.2-1.3) mg/dL AST (17-59) U/L ALT (4-49) U/L Alkaline Phosphatase (38-126) U/L Lactate Dehydrogenase (313-618) U/L C-Reactive Protein (<10.0) mg/L Total Protein (6.3-8.2) g/dL Albumin (3.5-5.0) g/dL Procalcitonin 0.09 (0.02-0.09) ng/mL Coronavirus (PCR) Not Detected (Not Detected) - EKG Data -: EKG Interpreted by Me (EKG shows sinus rhythm of 96, [place] 118, QRS 92, QTC 421) - Radiology Data Radiology results: report reviewed (Chest x-rays negative for acute disease), image reviewed Disposition Clinical Impression: Abdominal pain, Nausea and vomiting Narrative: r/o COVID Disposition: HOME SELF-CARE Condition: Fair Instructions (If sedation given, give patient instructions): Abdominal Pain (ED) Is patient prescribed a controlled substance at d/c from ED?: No Referrals: Anny Pace MD [Primary Care Provider] - 1-2 days
--- NOTE | 2020-01-28 02:54 | XR ---
EXAMINATION TYPE: XR chest 1V portable DATE OF EXAM: 01/28/2020 COMPARISON: 09/06/2018 HISTORY: Abdominal pain chest pain TECHNIQUE: Single view FINDINGS: Heart and mediastinum are normal. Lungs are clear. Diaphragm is normal. Bony thorax appears normal. IMPRESSION: Normal chest. No change.
[2020-01-28 03:14] LABS: ALT 17 U/L (4-49); AST 28 U/L (17-59); African American GFR (CKD) >90 (>60 ml/min/1.73 sqM); Albumin 4.3 g/dL (3.5-5.0); Alkaline Phosphatase 56 U/L (38-126); Anion Gap 8 mmol/L; Blood Urea Nitrogen 14 mg/dL (9-20); C Reactive Protein 7.6 mg/L (<10.0); Calcium 9.2 mg/dL (8.4-10.2); Carbon Dioxide 22 mmol/L (22-30); Chloride 106 mmol/L (98-107); Glucose 116 mg/dL (74-99); LDH 516 U/L (313-618); Magnesium 1.9 mg/dL (1.6-2.3); Non-African American GFR(CKD) >90 (>60 ml/min/1.73 sqM); Potassium 4.4 mmol/L (3.5-5.1); Sodium 136 mmol/L (137-145); Total Bilirubin 0.6 mg/dL (0.2-1.3); Total Protein 7.3 g/dL (6.3-8.2)
[2020-01-28 03:26] LABS: Basophils % (A) 0 %; Eosinophils # (A) 0.1 k/uL (0-0.7); Eosinophils % (A) 2 %; HCT 48.6 % (39.0-53.0); HGB 15.5 gm/dL (13.0-17.5); Lymphocytes # (A) 0.8 k/uL (1.0-4.8); Lymphocytes % (A) 8 %; MCH 30.6 pg (25.0-35.0); MCHC 31.8 g/dL (31.0-37.0); MCV 96.2 fL (80.0-100.0); Mean Platelet Volume 7.9; Monocytes # (A) 0.4 k/uL (0-1.0); Monocytes % (A) 4 %; Neutrophils # (A) 8.1 k/uL (1.3-7.7); Neutrophils % (A) 86 %; Platelet Count 254 k/uL (150-450); RBC 5.06 m/uL (4.30-5.90); RDW 12.7 % (11.5-15.5); WBC 9.5 k/uL (3.8-10.6)
[2020-01-28 03:29] LABS: INR 0.9 (<1.2); Partial Thromboplastin Time 25.1 sec (22.0-30.0); Prothrombin Time 9.9 sec (9.0-12.0)
[2020-01-28 03:40] LABS: D-Dimer 0.76 mg/L FEU (<0.60)
[2020-01-28 05:05] VITALS: BP 118/84; PULSE 77
[2020-01-28 12:25] LABS: Ferritin 62.6 ng/mL (22.0-322.0)
== END 2020-01-28 04:23 | disposition home or self-care (01) ==
LOC: EC 02:20
DX: R10.9 Unspecified abdominal pain (principal); R11.2 Nausea with vomiting, unspecified; R19.7 Diarrhea, unspecified; R06.02 Shortness of breath; R50.9 Fever, unspecified; F17.200 Nicotine dependence, unspecified, uncomplicated; Z20.828 Contact with and (suspected) exposure to other viral communicable diseases
CPT/HCPCS: 36415; 93005; 85379; 80053; 82728; 83605; 83615; 83735; 85025; 85610; 85730; 86140; 87040; 84145; 71045; 99284; 96374; 96375; 96361; U0003; J2405; C9113

== ENCOUNTER 2020-09-19 07:53 | Emergency (ER) | payer BC, OTHER ==
[2020-09-19 08:08] VITALS: TEMP 98
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
[2020-09-19 09:16] VITALS: BP 120/73; PULSE 76; RESP 16
== END 2020-09-19 09:16 | disposition home or self-care (01) ==
LOC: EC 07:53
DX: S16.1XXA Strain of muscle, fascia and tendon at neck level, initial encounter (principal); S00.83XA Contusion of other part of head, initial encounter; F32.9 Major depressive disorder, single episode, unspecified; F17.200 Nicotine dependence, unspecified, uncomplicated; V47.5XXA Car driver injured in collision with fixed or stationary object in traffic accident, initial encounter; Y92.410 Unspecified street and highway as the place of occurrence of the external cause
CPT/HCPCS: 70450; 70486; 72125; 99284

== ENCOUNTER 2023-01-24 21:44 | Emergency (ER) | payer OTHER ==
[2023-01-24 22:48] VITALS: TEMP 97.5
[2023-01-24] MEDS ORDERED: LORazepam 2 MG/ML INJ IM STA (23:00)
[2023-01-24] MEDS ORDERED: HALOPERIDOL LACTATE 5 MG/ML 1 ML VIAL IM STA (23:00)
[2023-01-24] MEDS ORDERED: diphenhydrAMINE 50 MG/ML 1 ML VIAL IM STA (23:00)
[2023-01-25] MEDS ORDERED: LORazepam 1 MG TAB PO STA (00:32)
--- NOTE | 2023-01-25 00:33 | ED ---
Psych HPI - General Chief Complaint: Psychiatric Symptoms Stated Complaint: Mental Health Time Seen by Provider: 01/24/23 22:39 Source: patient Mode of arrival: ambulatory - History of Present Illness Initial Comments: 32-year-old male presenting with chief complaint of depression and suicidal as well as homicidal ideation. No physical complaints at this time. Patient st ates that he wants to seek help. - Related Data Home Medications Medication Instructions Recorded Confirmed HYDROcodone/APAP 5-325MG [[place] 1 tab PO Q6H PRN 09/19/20 09/19/20 5-325] Nicotine 14Mg/24Hr Patch [Habitrol 1 patch TRANSDERM DAILY PRN 09/19/20 09/19/20 14Mg/24Hr Patch] clonazePAM [KlonoPIN] 1 mg PO DAILY PRN 09/19/20 09/19/20 Allergies Allergy/AdvReac Type Severity Reaction Status Date / Time No Known Allergies Allergy Verified 01/24/23 22:25 Review of Systems ROS Statement: Those systems with pertinent positive or pertinent negative responses have been documented in the HPI. ROS Other: All systems not noted in ROS Statement are negative. Past Medical History Past Medical History: No Reported History Additional Past Medical History / Comment(s): , craniofacial surgery History of Any Multi-Drug Resistant Organisms: None Reported Additional Past Surgical History / Comment(s): multiple cosmetic surgeries to face, wisdom teeth removed Past Psychological History: Depression Smoking Status: Current every day smoker Past Alcohol Use History: Rare Past Drug Use History: Marijuana General Exam Limitations: no limitations General appearance: alert, in no apparent distress Head exam: Present: atraumatic, normocephalic, normal inspection Eye exam: Present: normal appearance, EOMI. Absent: scleral icterus, periorbital swelling Neck exam: Present: normal inspection, full ROM Respiratory exam: Present: normal lung sounds bilaterally. Absent: respiratory distress, wheezes, rales, rhonchi, stridor Cardiovascular Exam: Present: regular rate, normal rhythm, normal heart sounds. Absent: systolic murmur, diastolic murmur, rubs, gallop, clicks Extremities exam: Present: normal inspection, full ROM Neurological exam: Present: alert, oriented X3, CN II-XII intact Psychiatric exam: Present: agitated Skin exam: Present: warm, dry, intact, normal color. Absent: rash Course Vital Signs 01/24/23 01/24/23 01/25/23 22:15 22:40 00:59 Temperature 97.8 F 97.5 F L Pulse Rate 83 80 74 Respiratory 16 20 18 Rate Blood Pressure 134/79 133/90 122/81 O2 Sat by Pulse 98 99 98 Oximetry Medical Decision Making - Medical Decision Making Was pt. sent in by a medical professional or institution (, PA, STRIPE MARKER, urgent care, hospital, or senior care...) When possible be specific @ -No Did you speak to anyone other than the patient for history (EMS, parent, family, police, friend...)? What history was obtained from this source @ -No Did you review nursing and triage notes (agree or disagree)? Why? @ -I reviewed and agree with nursing and triage notes Were old charts reviewed (outside hosp., previous admission, EMS record, old EKG, old radiological studies, urgent care reports/EKG's, senior care records)? Report findings @ -No old charts were reviewed Differential Diagnosis (chest pain, altered mental status, abdominal pain women, abdominal pain men, vaginal bleeding, weakness, fever, dyspnea, syncope, headache, dizziness, GI bleed, back pain, seizure, CVA, palpatations, mental health, musculoskeletal)? @ -Differential Mental Health Depression, anxiety, bipolar, psychosis, schizophrenia, borderline personality, situational depression, adjustment disorder, behavioral disorder, brain tumor, malingering, substance abuse, encephalopathy, medication reaction, dementia, hypothyroidism, degenerative neurologic disorder, lupus.... This is not meant to be all-inclusive list EKG interpreted by me (3pts min.). @ -As above X-rays interpreted by me (1pt min.). @ -None done CT interpreted by me (1pt min.). @ -None done U/S interpreted by me (1pt. min.). @ -None done What testing was considered but not performed or refused? (CT, X-rays, U/S, labs)? Why? @ -None What meds were considered but not given or refused? Why? @ -None Did you discuss the management of the patient with other professionals (professionals i.e. , PA, STRIPE MARKER, lab, RT, psych nurse, social studies teacher, card cleaner, teacher, mobile patrol officer, pillowcase cutter)? Give summary @ -Spoke with EPS nurse, she believes that he is safe for discharge home and will give proper resources Was smoking cessation discussed for >3mins.? @ -No Was critical care preformed (if so, how long)? @ -No Were there social determinants of health that impacted care today? How? (Homelessness, low income, unemployed, alcoholism, drug addiction, transportation, low edu. Level, literacy, decrease access to med. care, retirement, rehab)? @ -No Was there de-escalation of care discussed even if they declined (Discuss DNR or withdrawal of care, Hospice)? DNR status @ -No What co-morbidities impacted this encounter? (DM, HTN, Smoking, COPD, CAD, Cancer, CVA, ARF, Chemo, Hep., AIDS, mental health diagnosis, sleep apnea, morbid obesity)? @ -None Was patient admitted / discharged? Hospital course, mention meds given and route, prescriptions, significant lab abnormalities, going to OR and other pertinent info. @ -32-year-old male presenting with chief complaint of depression as well as suicidal and homicidal ideation. Patient is medically cleared and evaluated by EPS. EPS determines that the patient is safe for discharge, they will form safety plan and provided the patient with any necessary resources. Follow-up with PCP. Report back to ER with any new or worsening symptoms. Discussed return parameters and answered all questions. Patient conveyed verbal understanding and agreed to the plan. I discussed this case in detail with my attending Dr. Martinez Undiagnosed new problem with uncertain prognosis? @ -No Drug Therapy requiring intensive monitoring for toxicity (Heparin, Nitro, Insulin, Cardizem)? @ -No Were any procedures done? @ -No Diagnosis/symptom? @ -Anxiety and depression Acute, or Chronic, or Acute on Chronic? @ -Acute on chronic Uncomplicated (without systemic symptoms) or Complicated (systemic symptoms)? @ -Uncomplicated Side effects of treatment? @ -No Exacerbation, Progression, or Severe Exacerbation? @ -No Poses a threat to life or bodily function? How? (Chest pain, [place], [place], pneumonia, PE, COPD, DKA, ARF, appy, cholecystitis, CVA, Diverticulitis, Homicidal, Suicidal, threat to staff... and all critical care pts) @ -Low likelihood Disposition Clinical Impression: Acute anxiety Disposition: HOME SELF-CARE Condition: Fair Instructions (If sedation given, give patient instructions): Anxiety (ED), Suicide Prevention (ED) Additional Instructions: Follow-up with PCP and [facility]. Report back to ER with any new or worsening symptoms. Is patient prescribed a controlled substance at d/c from ED?: No Referrals: Anny Pace MD [Primary Care Provider] - 1-2 days Time of Disposition: 00:33
[2023-01-25 01:01] VITALS: BP 122/81; PULSE 74; RESP 18
== END 2023-01-25 01:01 | disposition home or self-care (01) ==
LOC: EC 21:44
DX: F41.9 Anxiety disorder, unspecified (principal); F32.A Depression, unspecified; F17.200 Nicotine dependence, unspecified, uncomplicated; F12.90 Cannabis use, unspecified, uncomplicated; Z79.899 Other long term (current) drug therapy
CPT/HCPCS: 82075; 99284

== ENCOUNTER 2023-08-26 16:02 | Emergency (ER) | payer OTHER ==
--- NOTE | 2023-08-26 17:12 | ED ---
Chest Pain HPI - General Chief Complaint: Chest Pain Stated Complaint: Chest pain Time Seen by Provider: 08/26/23 16:17 Source: patient, EMS Mode of arrival: EMS - History of Present Illness Initial Comments: 33-year-old male presenting to the ED with a chief complaint of chest pain. Patient states for the past few months he has had intermittent chest pain. States that he sometimes has weeks where he experiences episodes every day and then sometimes notes that he has complete relief of this. Patient states she is unsure of any provoking or exacerbating factors. States today had an episode of this chest pain again lasting for a few minutes. Pain sharp in nature. Pain does not radiate. Additionally, patient states this morning when he woke up and he celled his friend who noted that his face "looked funny". She describes it as noting that it look like the right side of his face was "slow". Also states when he called speech sounded like he was mumbling however patient notes that he just woke up at this time. Also notes that he had some blurred vision at this time of his right eye which lasted approximately 45 minutes. This is now resolved. States that this episode this morning additionally with the ongoing chest pain for the past few months prompted him to present to the ED for further evaluation. Her friend at bedside, speech is now normal. Reports that his face also now looks normal. Patient reports no chest pain at this time. Denies shortness of breath. He reports she has been feeling well over the past few days. No recent URI symptoms. No other symptoms at this time. Patient notes that he recently quit smoking tobacco and marijuana. States that this is day 7. Patient notes cardiac history on his father's side. No personal cardiac history. Records reviewed. Stress echo in 2018 unremarkable. Complaint: chest pain - Related Data Home Medications Medication Instructions Recorded Confirmed No Known Home Medications 08/26/23 08/26/23 Allergies Allergy/AdvReac Type Severity Reaction Status Date / Time No Known Allergies Allergy Verified 08/26/23 19:16 Review of Systems ROS Statement: Those systems with pertinent positive or pertinent negative responses have been documented in the HPI. ROS Other: All systems not noted in ROS Statement are negative. Past Medical History Past Medical History: No Reported History Additional Past Medical History / Comment(s): , craniofacial surgery History of Any Multi-Drug Resistant Organisms: None Reported Additional Past Surgical History / Comment(s): multiple cosmetic surgeries to face, wisdom teeth removed Past Psychological History: Depression Smoking Status: Current every day smoker Past Alcohol Use History: Rare Past Drug Use History: Marijuana General Exam General appearance: alert, in no apparent distress Head exam: Present: atraumatic, normocephalic Eye exam: Present: PERRL, EOMI Pupils: Present: normal accommodation ENT exam: Present: mucous membranes moist Neck exam: Present: normal inspection Respiratory exam: Present: normal lung sounds bilaterally Cardiovascular Exam: Present: regular rate, normal rhythm GI/Abdominal exam: Present: soft Neurological exam: Present: alert, oriented X3, CN II-XII intact (Finger to nose, rapid alternating hand movements, heel to whipple intact. ), other (Strength and sensation equal and intact of bilateral upper and lower extremities. Radial pulses 2+. DP/PT pulses 2+) Skin exam: Present: warm, dry Course Vital Signs 08/26/23 16:09 Pulse Rate 73 Respiratory 18 Rate Blood Pressure 121/75 O2 Sat by Pulse 97 Oximetry Chest Pain MDM - MDM Was pt. sent in by a medical professional or institution (, PA, LINK TRAINER OPERATOR, urgent care, hospital, or [facility]...) When possible be specific @ -No Did you speak to anyone other than the patient for history (EMS, parent, family, police, friend...)? What history was obtained from this source @ -Spoke to patient and friend for history. For further details please see HPI. Did you review nursing and triage notes (agree or disagree)? Why? @ -I reviewed and agree with nursing and triage notes Were old charts reviewed (outside hosp., previous admission, EMS record, old EKG, old radiological studies, urgent care reports/EKG's, [facility] records)? Report findings @ -Prior record reviewed. For further details see HPI. Differential Diagnosis (chest pain, altered mental status, abdominal pain women, abdominal pain men, vaginal bleeding, weakness, fever, dyspnea, syncope, headache, dizziness, GI bleed, back pain, seizure, CVA, palpatations, mental health, musculoskeletal)? @ -Differential Chest Pain: Stable Angina, Unstable Angina, STEMI, NSTEMI Aortic Dissection, Pneumothorax, Musculoskeletal, Esophageal Spasm GERD, Cholecystitis, Pancreatitis, Zoster, this is not meant to be an all-inclusive list. Differential Altered Mental Status: Hypoglycemia, DKA, hypercapnia, ETOH, overdose, CO poisoning, trauma, myxedema coma, HTN encephalopathy, infection, encephalitis, psychosis, intercranial hemorrhage, hepatic encephalopathy, meningitis, CVA, this is not meant to be an all-inclusive list EKG interpreted by me (3pts min.). @ -EKG shows a sinus rhythm with a shortened NE interval at 107 ms. QRS 106, QT/QTc 412/412. Appears similar to prior. X-rays interpreted by me (1pt min.). @ -Chest x-ray interpreted by me showing no evidence of acute finding. CT interpreted by me (1pt min.). @ -CT brain interpreted by me showing no evidence of acute finding. U/S interpreted by me (1pt. min.). @ -None done What testing was considered but not performed or refused? (CT, X-rays, U/S, labs)? Why? @ -None What meds were considered but not given or refused? Why? @ -None Did you discuss the management of the patient with other professionals (professionals i.e. , PA, LINK TRAINER OPERATOR, lab, RT, psych nurse, manager social work, navy seal, teacher, chief resource officer, hospice case manager)? Give summary @ -No Was smoking cessation discussed for >3mins.? @ -No Was critical care preformed (if so, how long)? @ -No Were there social determinants of health that impacted care today? How? (Homelessness, low income, unemployed, alcoholism, drug addiction, transportation, low edu. Level, literacy, decrease access to med. care, assisted, r ehab)? @ -No Was there de-escalation of care discussed even if they declined (Discuss DNR or withdrawal of care, Hospice)? DNR status @ -No What co-morbidities impacted this encounter? (DM, HTN, Smoking, COPD, CAD, Cancer, CVA, ARF, Chemo, Hep., AIDS, mental health diagnosis, sleep apnea, morbid obesity)? @ -None Was patient admitted / discharged? Hospital course, mention meds given and route, prescriptions, significant lab abnormalities, going to OR and other pertinent info. @ -Discharge 43-year-old male with no significant past medical history presenting to the ED with complaints of intermittent chest pain for the last few months and today had an episode per friend where his face was "slow" and he was mumbling. Laboratory studies reviewed. Labs including CBC, coagulation panel, d-dimer, chemistry panel, troponin 2 unremarkable. Chest x-ray revealed no evidence of acute process. EKG here showed a normal sinus rhythm without acute ST-T wave changes. CT brain showed no acute changes. Remainder of neurologic exam unremarkable at this time as well. Time vital signs stable afebrile. Patient has had no recurrences of any symptoms while here in the ED. Discharged home in stable condition. Patient notes that he is going to follow up with both his primary care provider Dr. Pryor and make an appointment with Dr. Sanches for follow up. Discussed return precautions with patient and his friend who verbalized agreement. Undiagnosed new problem with uncertain prognosis? @ -No Drug Therapy requiring intensive monitoring for toxicity (Heparin, Nitro, Insulin, Cardizem)? @ -No Were any procedures done? @ -No Diagnosis/symptom? @ -Chest pain, blurred vision Acute, or Chronic, or Acute on Chronic? @ -Acute Uncomplicated (without systemic symptoms) or Complicated (systemic symptoms)? @ -Uncomplicated Side effects of treatment? @ -No Exacerbation, Progression, or Severe Exacerbation? @ -No Poses a threat to life or bodily function? How? (Chest pain, [place], [place], pneumonia, PE, COPD, DKA, ARF, appy, cholecystitis, CVA, Diverticulitis, Homicidal, Suicidal, threat to staff... and all critical care pts) @ -No Disposition Clinical Impression: Chest pain Disposition: HOME SELF-CARE Condition: Good Instructions (If sedation given, give patient instructions): Chest Pain (ED) Additional Instructions: Please return to the Emergency Department if symptoms worsen or any other concerns. Please follow-up with your primary care provider and cardiology. Is patient prescribed a controlled substance at d/c from ED?: No Referrals: None,Stated [Primary Care Provider] - 1-2 days Time of Disposition: 21:03
[2023-08-26 17:25] LABS: Basophils % (A) 0 %; Eosinophils # (A) 0.1 k/uL (0-0.7); Eosinophils % (A) 1 %; HCT 43.6 % (39.0-53.0); HGB 14.4 gm/dL (13.0-17.5); Lymphocytes # (A) 1.5 k/uL (1.0-4.8); Lymphocytes % (A) 27 %; MCH 31.2 pg (25.0-35.0); MCV 94.6 fL (80.0-100.0); Mean Platelet Volume 8.3; Monocytes # (A) 0.4 k/uL (0-1.0); Monocytes % (A) 8 %; Neutrophils # (A) 3.3 k/uL (1.3-7.7); Neutrophils % (A) 62 %; Platelet Count 213 k/uL (150-450); RBC 4.61 m/uL (4.30-5.90); RDW 12.5 % (11.5-15.5); WBC 5.4 k/uL (3.8-10.6)
[2023-08-26 17:41] LABS: ALT 24 U/L (4-49); AST 39 U/L (17-59); African American GFR (CKD) >90 (>60 ml/min/1.73 sqM); Albumin 4.2 g/dL (3.5-5.0); Alkaline Phosphatase 56 U/L (38-126); Anion Gap 12 mmol/L; Blood Urea Nitrogen 19 mg/dL (9-20); Calcium 8.9 mg/dL (8.4-10.2); Carbon Dioxide 20 mmol/L (22-30); Chloride 105 mmol/L (98-107); Glucose 90 mg/dL (74-99); Magnesium 2.1 mg/dL (1.6-2.3); Non-African American GFR(CKD) >90 (>60 ml/min/1.73 sqM); Sodium 137 mmol/L (137-145); Total Bilirubin 0.8 mg/dL (0.2-1.3); Total Protein 7.1 g/dL (6.3-8.2)
[2023-08-26 17:42] LABS: Potassium 4.6 mmol/L (3.5-5.1)
[2023-08-26 17:51] LABS: Partial Thromboplastin Time 21.1 sec (22.0-30.0)
--- NOTE | 2023-08-26 18:25 | CT ---
EXAMINATION TYPE: CT brain wo con DATE OF EXAM: 08/26/2023 COMPARISON: 09/19/2020 INDICATION: weakness, visual changes DLP: 1140.3 mGycm, Automated exposure control for dose reduction was used. CONTRAST: None CT of the brain is performed utilizing 3 mm thick sections through the posterior fossa and 3 mm thick sections through the remaining calvarium. Study is performed within 24 hours of arrival to the hosp ital. No abnormal hyperdensity is present to suggest an acute intracranial hemorrhage. No mass lesion is evident. No acute infarcts are evident. Ventricles and sulci are appropriate for the patient age. Paranasal sinuses and mastoid air cells within the [id number] are clear. IMPRESSION: 1. No acute intracranial process. Follow-up MRI can be performed as clinically indicated.
--- NOTE | 2023-08-26 18:28 | XR ---
EXAMINATION TYPE: XR chest 2V DATE OF EXAM: 08/26/2023 COMPARISON: 01/28/2020 INDICATION: Chest pain TECHNIQUE: Frontal and lateral views of the chest are obtained. FINDINGS: The heart size is normal. The pulmonary vasculature is normal. The lungs are clear. IMPRESSION: 1. No acute pulmonary process.
[2023-08-26 21:56] VITALS: BP 130/89; PULSE 89; RESP 19
== END 2023-08-26 21:39 | disposition home or self-care (01) ==
LOC: EC 16:02
DX: R07.9 Chest pain, unspecified (principal); H53.8 Other visual disturbances; F17.200 Nicotine dependence, unspecified, uncomplicated; F12.90 Cannabis use, unspecified, uncomplicated
CPT/HCPCS: 36415; 70450; 71046; 80053; 83735; 84484; 85025; 85379; 85610; 85730; 93005; 99285

== ENCOUNTER 2023-12-09 19:23 | Emergency (ER) | payer OTHER ==
[2023-12-09 19:58] VITALS: TEMP 98.2
--- NOTE | 2023-12-09 20:17 | ED ---
Anxiety HPI <NicolaRashawn - Last Filed: 12/15/23 13:32> - General Source: patient, RN notes reviewed, old records reviewed Mode of arrival: ambulatory - History of Present Illness MD Complaint: anxiety, heart racing -: month(s) Symptoms: palpitations Place: home Previous History of Same: Yes Severity: mild Quality: intermittent Provoking factors: none known Improves With: nothing Worsens With: nothing Associated symptoms: palpitations <Bronson Thorne - Last Filed: 12/18/23 03:07> - General Chief Complaint: Anxiety Stated Complaint: Anxiety Time Seen by Provider: 12/09/23 19:51 - History of Present Illness Initial Comments: This is a 33-year-old male to ER for medications, patient states he needs medications for psychiatric illness in regards to severe anxiety, patient states his anxiety medication that he is taking at home are not helping. No drugs or alcohol no psychiatric illness currently not homicidal or suicidal (Bronson Thorne) - Related Data Home Medications: Previous Rx's Medication Instructions Recorded busPIRone HCl [Buspar] 5 mg PO BID #60 tab 12/09/23 hydrOXYzine pamoate [Vistaril] 25 mg PO TID PRN #90 cap 12/09/23 hydrOXYzine HCL 25 mg PO Q8HR #21 tab 12/15/23 Allergies/Adverse Reactions: Allergies Allergy/AdvReac Type Severity Reaction Status Date / Time No Known Allergies Allergy Verified 08/26/23 19:16 Review of Systems ROS Other: All systems not noted in ROS Statement are negative. <Rashawn Petersen - Last Filed: 12/15/23 13:32> ROS Other: All systems not noted in ROS Statement are negative. <Bronson Thorne - Last Filed: 12/18/23 03:07> ROS Statement: Those systems with pertinent positive or pertinent negative responses have been documented in the HPI. Past Medical History Past Medical History: No Reported History Additional Past Medical History / Comment(s): , craniofacial surgery History of Any Multi-Drug Resistant Organisms: None Reported Additional Past Surgical History / Comment(s): multiple cosmetic surgeries to face, wisdom teeth removed Past Psychological History: Depression Smoking Status: Former smoker Past Alcohol Use History: Rare Past Drug Use History: Marijuana <Bronson Thorne - Last Filed: 12/18/23 03:07> General Exam General appearance: alert, in no apparent distress, anxious Head exam: Present: atraumatic, normocephalic, normal inspection Eye exam: Present: normal appearance, PERRL, EOMI. Absent: scleral icterus, conjunctival injection, periorbital swelling ENT exam: Present: normal exam, mucous membranes moist Neck exam: Present: normal inspection. Absent: tenderness, meningismus, lymphadenopathy Respiratory exam: Present: normal lung sounds bilaterally. Absent: respiratory distress, wheezes, rales, rhonchi, stridor Cardiovascular Exam: Present: regular rate, normal rhythm, normal heart sounds. Absent: systolic murmur, diastolic murmur, rubs, gallop, clicks GI/Abdominal exam: Present: soft, normal bowel sounds. Absent: distended, tenderness, guarding, rebound, rigid Extremities exam: Present: normal inspection, full ROM, normal capillary refill. Absent: tenderness, pedal edema, joint swelling, calf tenderness Back exam: Present: normal inspection Neurological exam: Present: alert, oriented X3, CN II-XII intact Psychiatric exam: Present: normal affect, normal mood Skin exam: Present: warm, dry, intact, normal color. Absent: rash <Bronson Thorne - Last Filed: 12/18/23 03:07> Course <Rashawn Petersen - Last Filed: 12/15/23 13:32> <Bronson Thorne - Last Filed: 12/18/23 03:07> Vital Signs 12/09/23 12/09/23 19:28 20:51 Temperature 98.2 F Pulse Rate 96 77 Respiratory 19 16 Rate Blood Pressure 140/95 135/83 O2 Sat by Pulse 96 96 Oximetry - Reevaluation(s) Reevaluation #1: 12/15/23 13:36 The patient did call in and was unable to get his hydroxyzine 25 mg #90 filled that his prescription was sent to [facility] pharmacy on . ill-appearing poor urine. He did receive a prescription for 21/-week supply. (Rashawn Petersen) Reevaluation #2: Medical records reviewed (Bronson Thorne) Reevaluation #3: Patient symptoms are improved denies psychiatric illness or homicidal thoughts (Bronson Thorne) Reevaluation #4: Patient informed of results and questions answered (Bronson Thorne) Reevaluation #5: Was pt. sent in by a medical professional or institution ([facility] Beck, [employer], urgent care, hospital, or senior living...) When possible be specific @ -no Did you speak to anyone other than the patient for history (EMS, parent, family, police, friend...)? What history was obtained from this source @ -no Did you review nursing and triage notes (agree or disagree)? Why? @ -agree Are old charts reviewed (outside hosp., previous admission, EMS record, old EKG, old radiological studies, urgent care reports/EKG's, senior living records)? Report findings @ -yes Differential Diagnosis (chest pain, altered mental status, abdominal pain women, abdominal pain men, vaginal bleeding, weakness, fever, dyspnea, syncope, headache, dizziness, GI bleed, back pain, seizure, CVA, palpatations, mental health, musculoskeletal)? @ -prior EKG interpreted by me (3pts min.). @ -no X-rays interpreted by me (1pt min.). @ -no CT interpreted by me (1pt min.). @ -no U/S interpreted by me (1pt. min.). @ -no What testing was considered but not performed or refused? (CT, X-rays, U/S, labs)? Why? @ -none What meds were considered but not given or refused? Why? @ -none Did you discuss the management of the patient with other professionals (professionals i.e. [facility] Beck, [employer], lab, RT, psych nurse, social media editor, oxygen therapy technician, teacher, assurance officer, casework specialist)? Give summary @ -no Was smoking cessation discussed for >3mins.? @ -no Was critical care preformed (if so, how long)? @ -no Were there social determinants of health that impacted care today? How? (Homelessness, low income, unemployed, alcoholism, drug addiction, transportation, low edu. Level, literacy, decrease access to med. care, shelter, rehab)? @ -none Was there de-escalation of care discussed even if they declined (Discuss DNR or withdrawal of care, Hospice)? DNR status @ -no What co-morbidities impacted this encounter? (DM, HTN, Smoking, COPD, CAD, Cancer, CVA, ARF, Chemo, Hep., AIDS, mental health diagnosis, sleep apnea, morbid obesity)? @ -none Was patient admitted / discharged? Hospital course, mention meds given and route, prescriptions, significant lab abnormalities, going to OR and other pertinent info. @ -33 male with significant anxiety and no acute findings here in the emergency room patient feels less anxious can be discharged home Undiagnosed new problem with uncertain prognosis? @ -no Drug Therapy requiring intensive monitoring for toxicity (Heparin, Nitro, Insulin, Cardizem)? @ -no Were any procedures done? @ -no Diagnosis/symptom? @ -Acute anxiety Acute, or Chronic, or Acute on Chronic? @ -Acute Uncomplicated (without systemic symptoms) or Complicated (systemic symptoms)? @ -Complicated Side effects of treatment? @ -no Exacerbation, Progression, or Severe Exacerbation? @ -exacerbation Poses a threat to life or bodily function? How? (Chest pain, USA, AR, pneumonia, PE, COPD, DKA, ARF, appy, cholecystitis, CVA, Diverticulitis, Homicidal, Suicidal, threat to staff... and all critical care pts) @ -no (Bronson Thorne) Medical Decision Making <Bronson Thorne - Last Filed: 12/18/23 03:07> - Medical Decision Making 33 male for significant anxiety reaction. Patient symptoms are improved here in the ER and can be discharged home (Bronson Thorne) Disposition <Rashawn Petersen - Last Filed: 12/15/23 13:32> Is patient prescribed a controlled substance at d/c from ED?: No Time of Disposition: 20:20 <Bronson Thorne - Last Filed: 12/18/23 03:07> Clinical Impression: Acute anxiety, Panic attack, Panic disorder Disposition: HOME SELF-CARE Condition: Fair Instructions (If sedation given, give patient instructions): Generalized Anxiety Disorder (ED) Prescriptions: busPIRone HCl [Buspar] 5 mg PO BID #60 tab hydrOXYzine HCL 25 mg PO Q8HR #21 tab hydrOXYzine pamoate [Vistaril] 25 mg PO TID PRN #90 cap PRN Reason: Agitation Referrals: Sohail Mena MD [STAFF PHYSICIAN] - 1-2 days
[2023-12-09] MEDS: LORazepam 1 MG TAB PO STA (20:43)
[2023-12-09] MEDS: hydrOXYzine pamoate 25 MG CAP PO STA (20:44)
[2023-12-09 21:19] VITALS: BP 135/83; PULSE 77; RESP 16
== END 2023-12-09 20:52 | disposition home or self-care (01) ==
LOC: EC 19:23
DX: F41.0 Panic disorder [episodic paroxysmal anxiety] (principal); Z87.891 Personal history of nicotine dependence
CPT/HCPCS: 99283